=== PATIENT | female | born 1945 | race Caucasian/White ===

== ENCOUNTER 2020-02-13 07:58 | Outpatient (REF) | payer MEDICARE, OTHER, SELFPAY ==
[2020-02-13 12:15] LABS: Alanine Aminotransferase 12 U/L (0-31); Aspartate Amino Transferase 14 U/L (5-31); Cholesterol 248 mg/dL; HDL Cholesterol 77 mg/dL; LDL Cholesterol Calculated 153 mg/dl; Triglycerides 90 mg/dL
[2020-02-13 12:22] LABS: Vitamin D 25-OH Total 45.2 ng/mL (>30)
== END 2020-02-13 07:59 | disposition home or self-care (01) ==
LOC: HO.HMGCLDS 07:58
PROVIDERS: PCP Internal Medicine; Visit Provider Internal Medicine
DX: E78.5 Hyperlipidemia, unspecified (principal); M81.0 Age-related osteoporosis without current pathological fracture
CPT/HCPCS: 80061; 82306; 84450; 84460

== ENCOUNTER 2020-10-05 06:19 | Outpatient (REF) | payer MEDICARE, OTHER, SELFPAY ==
[2020-10-05 13:13] LABS: Alanine Aminotransferase 13 U/L (0-31); Anion Gap 14 (12-20); Aspartate Amino Transferase 17 U/L (5-31); Blood Urea Nitrogen 23 mg/dL (9-16); Calcium 9.3 mg/dL (8.4-10.2); Carbon Dioxide 25 mmol/L (22-29); Chloride 106 mmol/L (96-108); Cholesterol 227 mg/dL; Estimated Glomerular Filt Rate > 60; Glucose Fasting 86 mg/dL (60-99); HDL Cholesterol 77 mg/dL; LDL Cholesterol Calculated 135 mg/dl; Potassium 4.6 mmol/L (3.3-5.1); Sodium 140 mmol/L (135-145); Triglycerides 79 mg/dL
[2020-10-05 13:31] LABS: Vitamin D 25-OH Total 43.4 ng/mL (>30)
== END 2020-10-05 06:20 | disposition home or self-care (01) ==
LOC: HO.HMGCLDS 06:19
PROVIDERS: PCP Internal Medicine; Visit Provider Internal Medicine
DX: M81.0 Age-related osteoporosis without current pathological fracture (principal); I10 Essential (primary) hypertension; E78.5 Hyperlipidemia, unspecified; Z78.0 Asymptomatic menopausal state
CPT/HCPCS: 36415; 80048; 80061; 82306; 84450; 84460

== ENCOUNTER 2020-12-27 09:32 | Outpatient (REF) | payer MEDICARE, OTHER, SELFPAY ==
--- NOTE | ~2020-12-27 | MM_ITS ---
EXAMINATION: MM SCREENING DIGITAL BREAST TOMOSYNTHESIS, BILATERAL CLINICAL INFORMATION: Screening. Asymptomatic. The lifetime risk of breast cancer based on the Tyrer-Cuzick Model is 6%. COMPARISON: Mammography: 12/22/2019, 10/01/2018, 03/23/2008 TECHNIQUE: Digital breast tomosynthesis is performed in both the craniocaudal and mediolateral oblique views along with computer-aided detection (CAD). Synthesized 2D images are generated from the tomosynthesis. FINDINGS: There are scattered areas of fibroglandular density (ACR BI-RADS breast composition Category b). There are no significant masses, abnormal calcifications, or other abnormalities. There is no developing density. Biopsy clip marker again noted left breast central aspect mid depth. There are bilateral vascular calcifications again seen. The axilla are unremarkable. No significant changes. MM/MM tomosynthesis screening BI IMPRESSION: No mammographic evidence of malignancy. ASSESSMENT: BI-RADS 1: Negative RECOMMENDATION: Routine annual mammography screening. This patient's information was entered into a reminder system with a target due date for their next mammogram.
== END 2020-12-27 09:33 | disposition home or self-care (01) ==
LOC: HO.MAMMO 09:32
PROVIDERS: PCP Internal Medicine; Visit Provider Internal Medicine
DX: Z12.31 Encounter for screening mammogram for malignant neoplasm of breast (principal)
CPT/HCPCS: 77063; 77067

== ENCOUNTER 2021-03-09 07:05 | Outpatient (REF) | payer MEDICARE, OTHER, SELFPAY ==
[2021-03-09 11:58] LABS: Alanine Aminotransferase 15 U/L (0-31); Anion Gap 13 (12-20); Aspartate Amino Transferase 17 U/L (5-31); Blood Urea Nitrogen 19 mg/dL (9-16); Calcium 9.3 mg/dL (8.4-10.2); Carbon Dioxide 25 mmol/L (22-29); Chloride 108 mmol/L (96-108); Cholesterol 231 mg/dL; Estimated Glomerular Filt Rate > 60; Glucose Fasting 101 mg/dL (60-99); HDL Cholesterol 72 mg/dL; LDL Cholesterol Calculated 139 mg/dl; Potassium 4.8 mmol/L (3.3-5.1); Sodium 141 mmol/L (135-145); Triglycerides 104 mg/dL
[2021-03-09 12:07] LABS: Vitamin D 25-OH Total 40.2 ng/mL (>30)
== END 2021-03-09 07:06 | disposition home or self-care (01) ==
LOC: HO.HMGCLDS 07:05
PROVIDERS: PCP Internal Medicine; Visit Provider Internal Medicine
DX: E78.5 Hyperlipidemia, unspecified (principal); I10 Essential (primary) hypertension; M81.0 Age-related osteoporosis without current pathological fracture; Z78.0 Asymptomatic menopausal state
CPT/HCPCS: 36415; 80048; 80061; 82306; 84450; 84460

== ENCOUNTER 2021-09-01 07:38 | Outpatient (REF) | payer MEDICARE, OTHER, SELFPAY ==
[2021-09-01 11:47] LABS: Alanine Aminotransferase 13 U/L (0-31); Anion Gap 11 (12-20); Aspartate Amino Transferase 17 U/L (5-31); Blood Urea Nitrogen 21 mg/dL (9-16); Calcium 9.9 mg/dL (8.4-10.2); Carbon Dioxide 25 mmol/L (22-29); Chloride 107 mmol/L (96-108); Cholesterol 241 mg/dL; Estimated Glomerular Filt Rate 58; Glucose Fasting 103 mg/dL (60-99); HDL Cholesterol 85 mg/dL; LDL Cholesterol Calculated 137 mg/dl; Potassium 5.1 mmol/L (3.3-5.1); Sodium 138 mmol/L (135-145); Triglycerides 96 mg/dL
== END 2021-09-01 07:39 | disposition home or self-care (01) ==
LOC: HO.HMGCLDS 07:38
PROVIDERS: Visit Provider Internal Medicine
DX: E78.5 Hyperlipidemia, unspecified (principal); I10 Essential (primary) hypertension; M81.0 Age-related osteoporosis without current pathological fracture; Z78.0 Asymptomatic menopausal state
CPT/HCPCS: 36415; 80048; 80061; 82306; 84450; 84460

== ENCOUNTER 2021-12-28 10:38 | Outpatient (REF) | payer MEDICARE, OTHER, SELFPAY ==
--- NOTE | ~2021-12-28 | MM_ITS ---
EXAMINATION: MM SCREENING DIGITAL BREAST TOMOSYNTHESIS, BILATERAL CLINICAL INFORMATION: Screening. Asymptomatic. The lifetime risk of breast cancer based on the Tyrer-Cuzick Model is 7%. COMPARISON: Mammography: 12/27/2020, 12/22/2019, 10/01/2018 TECHNIQUE: Digital breast tomosynthesis is performed in both the craniocaudal and mediolateral oblique views along with computer-aided detection (CAD). Synthesized 2D images are generated from the tomosynthesis. FINDINGS: There are scattered areas of fibroglandular density (ACR BI-RADS breast composition Category b). There are no significant masses, abnormal calcifications, or other abnormalities. Parenchymal pattern is similar to prior exams. No developing density. Again, there are bilateral predominantly vascular calcifications. Biopsy clip marker again seen mid central left breast. No significant changes. MM/MM tomosynthesis screening BI IMPRESSION: No mammographic evidence of malignancy. ASSESSMENT: BI-RADS 1: Negative RECOMMENDATION: Routine annual mammography screening. This patient's information was entered into a reminder system with a target due date for their next mammogram.
== END 2021-12-28 10:39 | disposition home or self-care (01) ==
LOC: HO.MAMMO 10:38
PROVIDERS: PCP Internal Medicine; Visit Provider Internal Medicine
DX: Z12.31 Encounter for screening mammogram for malignant neoplasm of breast (principal)
CPT/HCPCS: 77063; 77067

== ENCOUNTER 2022-05-04 08:26 | Outpatient (REF) | payer MEDICARE, OTHER, SELFPAY ==
[2022-05-04 12:21] LABS: Alanine Aminotransferase 11 U/L (0-31); Anion Gap 12 (12-20); Aspartate Amino Transferase 15 U/L (5-31); Blood Urea Nitrogen 15 mg/dL (9-16); Calcium 9.6 mg/dL (8.4-10.2); Carbon Dioxide 25 mmol/L (22-29); Chloride 108 mmol/L (96-108); Cholesterol 221 mg/dL; Estimated Glomerular Filt Rate 60; Glucose Fasting 98 mg/dL (60-99); HDL Cholesterol 86 mg/dL; LDL Cholesterol Calculated 116 mg/dl; Potassium 4.1 mmol/L (3.3-5.1); Sodium 141 mmol/L (135-145); Triglycerides 95 mg/dL
[2022-05-04 12:23] LABS: Vitamin D 25-OH Total 36.7 ng/mL (>30)
== END 2022-05-04 08:27 | disposition home or self-care (01) ==
LOC: HO.HMGCLDS 08:26
PROVIDERS: PCP Internal Medicine; Visit Provider Internal Medicine
DX: E78.5 Hyperlipidemia, unspecified (principal); I10 Essential (primary) hypertension; M81.0 Age-related osteoporosis without current pathological fracture; Z78.0 Asymptomatic menopausal state
CPT/HCPCS: 36415; 80048; 80061; 82306; 84450; 84460

== ENCOUNTER 2022-11-27 08:12 | Outpatient (REF) | payer MEDICARE, OTHER, SELFPAY ==
[2022-11-27 12:22] LABS: Alanine Aminotransferase 9 U/L (0-31); Anion Gap 14 (12-20); Aspartate Amino Transferase 13 U/L (5-31); Blood Urea Nitrogen 20 mg/dL (9-16); Calcium 9.7 mg/dL (8.4-10.2); Carbon Dioxide 22 mmol/L (22-29); Chloride 110 mmol/L (96-108); Cholesterol 246 mg/dL; Estimated Glomerular Filt Rate > 60; Glucose Fasting 95 mg/dL (60-99); HDL Cholesterol 82 mg/dL; LDL Cholesterol Calculated 147 mg/dl; Potassium 4.3 mmol/L (3.3-5.1); Sodium 142 mmol/L (135-145); Triglycerides 89 mg/dL
== END 2022-11-27 08:13 | disposition home or self-care (01) ==
LOC: HO.HMGCLDS 08:12
PROVIDERS: PCP Internal Medicine; Visit Provider Internal Medicine
DX: E78.5 Hyperlipidemia, unspecified (principal); I10 Essential (primary) hypertension
CPT/HCPCS: 36415; 80048; 80061; 84450; 84460

== ENCOUNTER 2022-12-04 10:53 | Outpatient (AMB) | payer MEDICARE, OTHER, SELFPAY ==
--- NOTE | 2022-12-04 11:04 | MHC.PC.OV ---
Vital Signs 12/04/22 11:13 Height 5 ft 7 in Weight 143 lb BMI 22.4 BP 144/90 H Blood Pressure Location Rt brachial Position Sitting Pulse 71 Pulse Source Pulse Oximeter Pulse Oximetry (%) 100 Oxygen Delivery Method Room Air Intake Visit Reasons: 6 month follow up htn,lipids Intake Note: Pt is here today for her 6 mo. f/u lipids and HTN Allergies Penicillins Allergy (Unknown, Verified 12/04/22 11:43) Anaphylaxis Medication List - Last Reconciled 12/04/22 by Nara Johnson MD calcium carbonate-vitamin D2 600 mg calcium- 200 unit tabs PO dorzolamide-timolol 22.3-6.8 mg/mL 1 drp ophthalmic (eye) BID losartan 25 mg PO DAILY rosuvastatin 5 mg PO .2 x a week Tobacco use date assessed: 12/04/22 Fall risk assessment: No Falls in past year Last assessed Fall Risk: 12/04/22 Dental Screening Dental Screen Date: 12/04/22 Did you have a dental visit in the last 12 months?: Yes Did you have a dental problem in the last 6 months where you did not have access to dental care?: No Was dental information given to patient?: Patient has dentist HPI 6 month follow up htn,lipids HPI Details 77-year-old lady with hypertension dyslipidemia, here today for follow-up currently taking rosuvastatin 5 mg twice a week only and losartan 25 mg daily. Blood pressure still elevated, and recent fasting labs showed elevated LDL cholesterol [facility] Medical History Essential hypertension Glaucoma Osteoporosis Dyslipidemia Surgical History History of dilatation and curettage Family History Father Medical history non-contributory Mother Medical history non-contributory Brother Lung cancer Paternal Grandmother Breast cancer Brother No problems noted. Son No problems noted. Daughter No problems noted. Social History Housing: House Alcohol intake: current Alcohol intake frequency: a few times a week Patient Tobacco Use Status: Former Tobacco user Years Smoked: 5 yrs e-Cigarette/Vaping Use: Never Used service: No Current occupational status: retired Cognitive needs: No Hearing needs: No Vision needs: No Questionnaire PHQ-9 Over the last 2 weeks, how often have you been bothered by any of the following problems? 1. Little interest or pleasure in doing things: several days 2. Feeling down, depressed, or hopeless: not at all 3. Trouble falling or staying asleep, or sleeping too much: not at all 4. Feeling tired or having little energy: not at all 5. Poor appetite or overeating: not at all 6. Feeling bad about yourself - or that you are a failure or have let yourself or your family down: not at all 7. Trouble concentrating on things, such as reading the newspaper or watching television: not at all 8. Moving or speaking so slowly that other people could have noticed. Or the opposite - being so fidgety or restless that you have been moving around a lot more than usual: not at all 9. Thoughts that you would be better off or of hurting yourself in some way: not at all Total score: 1 Depression Screening Interpretation: Negative 21403 - PHQ-9 Billing: Yes Source: Developed by Drs. Jamin Louie, Paula Ayala, Luis Armando Zavala and colleagues, with an educational adrianna from [employer]. Thrive Questionnaire Date Thrive assessed: 12/04/22 I am a: Patient What is your living situation today?: I have a steady place to live Within the past 12 months, did the food you bought not last and you didn't have the money to get more?: Never true Within the past 12 months, did you worry whether your food would run out before you got money to buy more?: Never true Do you have trouble paying for medicines?: No Do you have trouble getting transportation to medical appointments?: No Do you have trouble paying your heating and electricity bill?: No Do you have trouble taking care of your child, family member or friend?: No Do you have trouble with day-to-day activities such as bathing, preparing meals, shopping, managing finances, etc.?: No Are you currently unemployed and looking for a job?: No Are you interested in more education?: No AUDIT C Alcohol Use Questionnaire (AUDIT-C) 1. How often do you have a drink containing alcohol?: 4 or more times a week 2. How many drinks containing alcohol do you have on a typical day when you are drinking?: 1 or 2 3. How often do you have six or more drinks on one occasion?: Never Total Score: 4 ELBERT-7 AMB Questionnaire ELBERT-7 Date ELBERT - 7 assessed: 12/04/22 Feeling nervous, anxious, or on edge: 0 = Not at all Not being able to stop or control worryin = Not at all Worrying too much about different things: 0 = Not at all Trouble relaxin = Not at all Being so restless that it is hard to sit still: 0 = Not at all Becoming easily annoyed or irritable: 0 = Not at all Feeling afraid as if something awful might happen: 0 = Not at all Total ELBERT-7 score (0-4 normal; 5-9 mild; 10-14 moderate; 15-21 severe): 0 Source: Developed by Drs. Jamin Louie, Paula Ayala, Luis Armando Zavala and colleagues, with an educational adrianna from [employer]. ELBERT-7 Assessment Billing ELBERT-7 Assessment Tool: ELBERT-7 Assessment 76877 Review of Systems Const Denies body aches, Denies fatigue, Denies fever(s) and Denies headache(s) Eyes Denies change in vision and Denies itchy eyes ENT Denies dizziness, Denies headache(s), Denies nasal congestion and Denies nasal discharge Card Denies chest pain, Denies lightheadedness, Denies palpitations and Denies dyspnea Resp Denies chest congestion, Denies cough, Denies dyspnea and Denies wheezing GI Denies abdominal pain, Denies change in bowel habits and Denies heartburn Denies urinary frequency, Denies dysuria and Denies urinary urgency Skin/Breast Denies lesions and Denies rash Neuro Denies dizziness and Denies headache(s) Endo Denies fatigue, Denies polydipsia, Denies polyuria and Denies palpitations Demetris/Lymph Denies easy bruising Aller/Immun Denies itchy eyes, Denies seasonal rhinorrhea and Denies wheezing Physical exam (Primary Care) Vital Signs: Last Vital Signs Pulse 71 12/04/22 11:13 BP 144/90 H 12/04/22 11:13 Pulse Ox 100 12/04/22 11:13 Oxygen Delivery Method Room Air 12/04/22 11:13 BMI result Body Mass Index 22.4 Tobacco/Smoking Status: Tobacco use Status Tobacco use date assessed 12/04/22 12/04/22 11:07 Patient Tobacco Use Status Former Tobacco user 12/04/22 11:05 e-Cigarette/Vaping Use Never Used 12/04/22 11:05 PHQ-9: PHQ-9 Score PHQ-9: Total score 2 12/04/22 11:42 Depression Screening Interpretation: Negative Thrive Assessment: Date of Thrive Assessment Date Thrive assessed 12/04/22 12/04/22 11:35 Const General: cooperative, comfortable and no acute distress Orientation/consciousness: patient oriented x3 Eyes General: appearance normal, both eyes and all related structures Conjunctivae: conjunctivae normal Pupils: Equal, round and reactive pupils present EOM: EOMs intact bilaterally Neck Neck: Yes full ROM, Yes no lymphadenopathy and Yes supple Resp Effort & Inspection: normal respiratory effort and able to speak in complete sentences Auscultation: clear to auscultation bilaterally Cardio Rate: regular rate Rhythm: regular rhythm Heart sounds: S1 normal heart sound present and S2 normal heart sound present GI Inspection: Yes normal to inspection Palpation (GI): Soft to palpation, nontender and no masses Auscultation: normal bowel sounds Back/Spine/Pelvis Back: other Thoracic/Lumbar Spine: kyphosis Neuro General: patient oriented x3, gait normal, tone normal, moves all extremities, Normal light touch and pain sensation and no focal motor deficits Cranial nerves: Yes Equal, round and reactive pupils present Cognition (Neuro): normal cognition Gait exam (Neuro): Normal gait present Motor exam (neuro): 5/5 motor strength present throughout Extrem General: Yes full ROM, Yes no joint enlargement, Yes no pedal edema, Yes no calf tenderness and Yes normal gait Results Reviewed Results Reviewed: ENTERED: 11/27/22 DRAKE VICENTE: ORDERED: Met Prof Fast, AST, ALT, Lipid Panel Test Result Flag Reference Site Sodium 142 135-145 mmol/L Potassium 4.3 3.3-5.1 mmol/L CL 110 H 96-108 mmol/L CO2 22 22-29 mmol/L Gap 14 12-20 BUN 20 H 9-16 mg/dL Creat 0.81 0.5-1.4 mg/dL EGFR > 60 NOTE: For -Indonesian individuals, multiply the result by 1.210. Chronic Kidney Disease: Estimated GFR < 60 mL/min/1.73m2 Severe Kidney Disease: Estimated GFR < 15 mL/min/1.73m2 FBS 95 60-99 mg/dL CA 9.7 8.4-10.2 mg/dL AST (GOT) 13 5-31 U/L ALT (GPT) 9 0-31 U/L Triglyceride 89 mg/dL Desirable Triglyceride: less than 150 mg/dL Borderline High Triglyceride 150-199 mg/dL High Triglyceride: 200-499 mg/dL Very High Triglyceride: greater than or equal to 5OO mg/dL Chol 246 mg/dL Desirable Cholesterol: less than 200 mg/dL Borderline High Cholesterol: 200-239 mg/dL High Cholesterol: greater than 239 mg/dL LDL Calculated 147 mg/dl Desirable LDL: less than 100 mg/dL Near Optimal/Above Optimal LDL: 110-129 mg/dL Borderline High LDL: 130-159 mg/dL High LDL: 160-189 mg/dL Very High LDL: greater than or equal to 190 mg/dL HDL 82 mg/dL Desirable HDL: greater than 40 mg/dL Note: This HDL assay may give artificially low results in patients with liver disease. Assessment and Plan Assessment & Plan (1) Essential hypertension: Code(s): I10 - Essential (primary) hypertension Plan: Blood pressure goal is less than 130/80. Will increase losartan dose to 50 mg daily Reinforced importance of following a low sodium diet, getting regular exercise, and lowering stress levels. (2) Osteoporosis: Code(s): M81.0 - Age-related osteoporosis without current pathological fracture Qualifiers: Osteoporosis type: age-related Presence of current pathological fracture: without current pathological fracture Qualified Code(s): M81.0 - Age-related osteoporosis without current pathological fracture Plan: Advised to do regular weight-bearing exercise, continue taking vitamin-D3 supplements, take adequate calcium from dietary sources. Patient however does not want to get any further screening for osteoporosis, and declines further treatment (3) Dyslipidemia: Code(s): E78.5 - Hyperlipidemia, unspecified Plan: Fasting lipid panel showed higher LDL cholesterol at 146 mg/dL . Increase rosuvastatin dosing frequency to 5 mg 3 times a week, adhere to healthy eating habits, get regular exercise, repeat another fasting lipid panel in March 2023 Medications: Changed From losartan 25 mg PO DAILY 90 tabs 1RF I10 - Essential (primary) hypertension To losartan 50 mg PO DAILY 90 tabs 1RF I10 - Essential (primary) hypertension From rosuvastatin 5 mg PO .2 x a week E78.5 - Hyperlipidemia, unspecified To rosuvastatin 5 mg PO Q2D 45 tabs 3RF 3 months E78.5 - Hyperlipidemia, unspecified Review Patient declined Mammogram: 12/04/22 Patient declined Colonoscopy: 12/04/22 Coding Level of Care Code Est Pt Level 4 (34537) Diagnoses Essential hypertension I10 Age-related osteoporosis without current pathological fracture M81.0 Osteoporosis type: age-related Presence of current pathological fracture: without current pathological fracture Dyslipidemia E78.5 Additional Codes ELBERT-7 Assessment Billing - ELBERT-7 Assessment Tool: ELBERT-7 Assessment 24749 ([id number])
[2022-12-04 11:13] VITALS: BP 144/90; PULSE 71; O2SAT 100; BMI 22.4
== END 2022-12-04 11:59 | disposition home or self-care (01) ==
PROVIDERS: Visit Provider Internal Medicine
DX: I10 Essential (primary) hypertension (principal); M81.0 Age-related osteoporosis without current pathological fracture; E78.5 Hyperlipidemia, unspecified
CPT/HCPCS: 99214

== ENCOUNTER 2023-03-20 08:13 | Outpatient (REF) | payer MEDICARE, OTHER, SELFPAY ==
[2023-03-20 11:59] LABS: Alanine Aminotransferase 10 U/L (0-31); Anion Gap 10 (12-20); Aspartate Amino Transferase 15 U/L (5-31); Blood Urea Nitrogen 19 mg/dL (9-16); Calcium 9.7 mg/dL (8.4-10.2); Carbon Dioxide 27 mmol/L (22-29); Chloride 107 mmol/L (96-108); Cholesterol 234 mg/dL (<200); Estimated Glomerular Filt Rate > 60; Glucose Fasting 100 mg/dL (60-99); HDL Cholesterol 85 mg/dL (>40); LDL Cholesterol Calculated 134 mg/dL (<100); Sodium 139 mmol/L (135-145); Triglycerides 78 mg/dL (<150)
== END 2023-03-20 08:14 | disposition home or self-care (01) ==
LOC: HO.HMGCLDS 08:13
PROVIDERS: PCP Internal Medicine; Visit Provider Internal Medicine
DX: I10 Essential (primary) hypertension (principal); M81.0 Age-related osteoporosis without current pathological fracture; E78.5 Hyperlipidemia, unspecified; Z78.0 Asymptomatic menopausal state
CPT/HCPCS: 36415; 80048; 80061; 82306; 84450; 84460

== ENCOUNTER 2023-03-30 10:30 | Outpatient (AMB) | payer MEDICARE, OTHER, SELFPAY ==
--- NOTE | 2023-03-30 11:32 | MHC.PC.OV ---
Vital Signs 03/30/23 11:33 Height 5 ft 7 in Weight 144 lb 4 oz BMI 22.6 BP 135/85 Blood Pressure Location Lt brachial Position Sitting Pulse 68 Pulse Source Pulse Oximeter Pulse Oximetry (%) 99 Oxygen Delivery Method Room Air Intake Visit Reasons: 4 month f/u Intake Note: pt is here to follow up for her lab results Allergies Penicillins Allergy (Unknown, Verified 03/30/23 11:42) Anaphylaxis Medication List - Last Reconciled 03/30/23 by Nara Johnson MD calcium carbonate-vitamin D2 600 mg calcium- 200 unit tabs PO dorzolamide-timolol 22.3-6.8 mg/mL 1 drp ophthalmic (eye) BID losartan 50 mg PO DAILY rosuvastatin 5 mg PO .3 times per week 3 months Tobacco use date assessed: 03/30/23 Fall risk assessment: No Falls in past year Last assessed Fall Risk: 03/30/23 Dental Screening Dental Screen Date: 03/30/23 Did you have a dental visit in the last 12 months?: Yes Did you have a dental problem in the last 6 months where you did not have access to dental care?: No Was dental information given to patient?: Patient has dentist HPI 4 month f/u HPI Details 77-year-old lady with glaucoma, hypertension, hyperlipidemia, osteoporosis, here today for follow-up. She declines treatment her osteoporosis, has been advised to continue taking her calcium and vitamin-D supplements, continue regular exercise. She takes losartan 50 mg once a day for her blood pressure which is better controlled as compared to last check. Denies any chest pain, no headache or lightheadedness or shortness of breath. She takes rosuvastatin 5 mg 3 times a week, and has been compliant with recommended diet. [facility] Medical History Essential hypertension Glaucoma Osteoporosis Dyslipidemia Surgical History History of dilatation and curettage Family History Father Medical history non-contributory Mother Medical history non-contributory Brother Lung cancer Paternal Grandmother Breast cancer Brother No problems noted. Son No problems noted. Daughter No problems noted. Social History Housing: House Alcohol intake: current Alcohol intake frequency: a few times a week Patient Tobacco Use Status: Former Tobacco user Years Smoked: 5 yrs e-Cigarette/Vaping Use: Never Used service: No Current occupational status: retired Cognitive needs: No Hearing needs: No Vision needs: No Questionnaire PHQ-9 Over the last 2 weeks, how often have you been bothered by any of the following problems? Depression Screening Interpretation: Negative Depression Screening Done: Yes Source: Developed by Drs. Jamin Louie, Paula Ayala, Luis Armando Zavala and colleagues, with an educational adrianna from [employer]. Thrive Questionnaire Date Thrive assessed: 12/04/22 ELBERT-7 AMB Questionnaire ELBERT-7 Date ELBERT - 7 assessed: 12/04/22 Source: Developed by Drs. Jamin Louie, Paula Ayala, Luis Armando Zavala and colleagues, with an educational adrianna from [employer]. Review of Systems Const Denies body aches, Denies fatigue, Denies fever(s) and Denies headache(s) Eyes Denies change in vision and Denies itchy eyes ENT Denies dizziness, Denies headache(s), Denies nasal congestion and Denies nasal discharge Card Denies chest pain, Denies lightheadedness, Denies palpitations and Denies dyspnea Resp Denies chest congestion, Denies cough, Denies dyspnea and Denies wheezing GI Denies abdominal pain, Denies change in bowel habits and Denies heartburn Denies urinary frequency, Denies dysuria and Denies urinary urgency Musc Details: No history of fractures Reports no additional complaints Skin/Breast Denies lesions and Denies rash Neuro Denies dizziness and Denies headache(s) Endo Denies fatigue, Denies polydipsia, Denies polyuria and Denies palpitations Demetris/Lymph Denies easy bruising Aller/Immun Denies itchy eyes, Denies seasonal rhinorrhea and Denies wheezing Physical exam (Primary Care) Vital Signs: Last Vital Signs Pulse 68 03/30/23 11:33 BP 135/85 03/30/23 11:33 Pulse Ox 99 03/30/23 11:33 Oxygen Delivery Method Room Air 03/30/23 11:33 BMI result Body Mass Index 22.6 Tobacco/Smoking Status: Tobacco use Status Tobacco use date assessed 03/30/23 03/30/23 11:37 Patient Tobacco Use Status Former Tobacco user 03/30/23 11:32 e-Cigarette/Vaping Use Never Used 03/30/23 11:32 Depression Screening Interpretation: Negative Thrive Assessment: Date of Thrive Assessment Date Thrive assessed 12/04/22 03/30/23 11:32 Const General: cooperative, comfortable and no acute distress Orientation/consciousness: patient oriented x3 HENMT Head: Yes normocephalic Face and sinus: Yes face symmetric Mouth: Normal oral and palatal mucosa present, oropharynx normal and moist mucous membranes Eyes General: appearance normal, both eyes and all related structures Neck Neck: Yes full ROM, Yes no lymphadenopathy and Yes supple Resp Effort & Inspection: normal respiratory effort and able to speak in complete sentences Auscultation: clear to auscultation bilaterally Cardio Rate: regular rate Rhythm: regular rhythm Heart sounds: S1 normal heart sound present and S2 normal heart sound present GI Inspection: Yes normal to inspection Palpation (GI): Soft to palpation, nontender and no masses Auscultation: normal bowel sounds Back/Spine/Pelvis Back: other Thoracic/Lumbar Spine: kyphosis Neuro General: patient oriented x3, gait normal, tone normal, moves all extremities, Normal light touch and pain sensation and no focal motor deficits Cognition (Neuro): normal cognition Gait exam (Neuro): Normal gait present Motor exam (neuro): 5/5 motor strength present throughout Extrem General: Yes full ROM, Yes no joint enlargement, Yes no pedal edema, Yes no calf tenderness and Yes normal gait Results Reviewed Results Reviewed: ENTERED: 03/20/[address]: ORDERED: Met Prof Fast, AST, ALT, Lipid Panel, Vitamin D 25-OH Test Result Flag Reference Site Sodium 139 135-145 mmol/L Potassium 5.0 3.3-5.1 mmol/L CL 107 96-108 mmol/L CO2 27 22-29 mmol/L Gap 10 L 12-20 BUN 19 H 9-16 mg/dL Creat 0.82 0.5-1.4 mg/dL EGFR > 60 NOTE: For -Martiniquais individuals, multiply the result by 1.210. Chronic Kidney Disease: Estimated GFR < 60 mL/min/1.73m2 Severe Kidney Disease: Estimated GFR < 15 mL/min/1.73m2 FBS 100 H 60-99 mg/dL A fasting glucose from 100-125 mg/dl is considered impaired (pre-diabetes). CA 9.7 8.4-10.2 mg/dL AST (GOT) 15 5-31 U/L ALT (GPT) 10 0-31 U/L Triglyceride 78 <150 mg/dL Desirable Triglyceride: less than 150 mg/dL Borderline High Triglyceride 150-199 mg/dL High Triglyceride: 200-499 mg/dL Very High Triglyceride: greater than or equal to 5OO mg/dL Cholesterol 234 H <200 mg/dL Desirable Cholesterol: less than 200 mg/dL Borderline High Cholesterol: 200-239 mg/dL High Cholesterol: greater than 239 mg/dL LDL Calculated 134 H <100 mg/dL Desirable LDL: less than 100 mg/dL Near Optimal/Above Optimal LDL: 110-129 mg/dL Borderline High LDL: 130-159 mg/dL High LDL: 160-189 mg/dL Very High LDL: greater than or equal to 190 mg/dL HDL 85 >40 mg/dL Desirable HDL: greater than 40 mg/dL Note: This HDL assay may give artificially low results in patients with liver disease. Vit D 25-OH Tot 43.0 >30 ng/mL Health Based Reference Values* < 20 ng/mL Deficient 20-30 ng/mL Insufficient > 30 ng/mL Sufficient Assessment and Plan Assessment & Plan (1) Osteoporosis: Code(s): M81.0 - Age-related osteoporosis without current pathological fracture Qualifiers: Osteoporosis type: age-related Presence of current pathological fracture: without current pathological fracture Qualified Code(s): M81.0 - Age-related osteoporosis without current pathological fracture Plan: Patient declines further treatment, encouraged to continue with taking adequate calcium and vitamin-D 3 supplements, and stay active, to do regular weight-bearing exercise (2) Dyslipidemia: Code(s): E78.5 - Hyperlipidemia, unspecified Plan: Reviewed recent fasting lipid profile with patient with levels within normal limits except for mildly elevated LDL cholesterol . Continue with rosuvastatin 5 mg 3 times a week , in addition to adherence to low-cholesterol diet and regular exercise, at least 30 minutes 3 to 4 times a week. Advised patient to make healthy food choices, eat more fruits, vegetables, whole grains, wild caught fish and low-fat dairy. Limit amount of meat and fried or fatty food products, as well as processed foods and fast foods. Follow-up scheduled with repeat fasting lipid panel in 5 months. (3) Essential hypertension: Code(s): I10 - Essential (primary) hypertension Plan: . Continue with losartan 50 mg daily. Reinforced importance of following a low sodium diet, getting regular exercise, and lowering stress levels. Orders: Orders Aspartate Amino Transferase 08/29/23 M81.0 - Age-related osteoporosis without current pathological fracture, E78.5 - Hyperlipidemia, unspecified, I10 - Essential (primary) hypertension, Z78.0 - Asymptomatic menopausal state Vitamin D 25-OH Total 08/29/23 M81.0 - Age-related osteoporosis without current pathological fracture, E78.5 - Hyperlipidemia, unspecified, I10 - Essential (primary) hypertension, Z78.0 - Asymptomatic menopausal state Lipid Panel 08/29/23 M81.0 - Age-related osteoporosis without current pathological fracture, E78.5 - Hyperlipidemia, unspecified, I10 - Essential (primary) hypertension, Z78.0 - Asymptomatic menopausal state Basic Metabolic Panel Fasting 08/29/23 M81.0 - Age-related osteoporosis without current pathological fracture, E78.5 - Hyperlipidemia, unspecified, I10 - Essential (primary) hypertension, Z78.0 - Asymptomatic menopausal state Alanine Aminotransferase 08/29/23 M81.0 - Age-related osteoporosis without current pathological fracture, E78.5 - Hyperlipidemia, unspecified, I10 - Essential (primary) hypertension, Z78.0 - Asymptomatic menopausal state Coding Level of Care Code Est Pt Level 4 (08055) Diagnoses Age-related osteoporosis without current pathological fracture M81.0 Osteoporosis type: age-related Presence of current pathological fracture: without current pathological fracture Dyslipidemia E78.5 Essential hypertension I10
[2023-03-30 11:33] VITALS: BP 135/85; PULSE 68; O2SAT 99; BMI 22.6
== END 2023-03-30 12:18 | disposition home or self-care (01) ==
PROVIDERS: PCP Internal Medicine; Visit Provider Internal Medicine
DX: M81.0 Age-related osteoporosis without current pathological fracture (principal); E78.5 Hyperlipidemia, unspecified; I10 Essential (primary) hypertension
CPT/HCPCS: 99214